=== PATIENT | male | born 1950 | race Asian ===

== ENCOUNTER → 2019-09-02 | Day surgery (SDC) | payer BC, OTHER ==
[2019-08-29 09:52] LABS: BASOPHILS % 0.4 % (0.0-1.0); EOSINOPHILS # (AUTO) 0.2 (0.0-0.4); EOSINOPHILS % 3.3 % (0.0-6.0); HEMATOCRIT 45.1 % (38.2-49.6); HEMOGLOBIN 14.8 g/dL (14.0-18.0); LYMPHOCYTES # (AUTO) 1.8 (1.0-3.2); MEAN CORPUSCULAR HEMOGLOBIN 29.5 pg (28-32); MEAN CORPUSCULAR HGB CONC 32.8 g/dL (31-35); MEAN CORPUSCULAR VOLUME 89.8 fL (81-99); MONOCYTES # (AUTO) 0.4 (0.2-0.8); MONOCYTES % 8.5 % (4.4-11.3); NEUTROPHILS # (AUTO) 2.8 (2.1-6.9); NEUTROPHILS % 53.6 % (38.7-80.0); PLATELET COUNT 153 x10e3/uL (140-360); RED BLOOD COUNT 5.02 x10e6/uL (4.3-5.7); RED CELL DISTRIBUTION WIDTH 12.6 % (11.7-14.4)
[~2019-09-02] MED LIST: AMLODIPINE BESYL5 MG PO; BACLOFEN10 MG PO; BARACLUDE0.5 MG PO; CRESTOR10 MG PO; FENTANYL CITRATE/PF 100MCG/2 ML INJ ONE; GABAPENTIN100 MG PO; LOSARTAN POTASS50 MG PO; MIDAZOLAM HCL 2 MG/2 ML VIAL ONE; OR PHACO EYE KIT ONE; OXCARBAZEPINE600 MG PO; PREOP PHACO EYE KIT ONE
--- OUTSIDE RECORDS SUMMARY | 2019-09-02 13:39 | XMS REPORT | Clinical Summary ---
Author Author [facility] Address Unknown Phone Unavailable Care Team Providers Care Maintenance Engineer Name Role Phone Gabriella Joshua MD PCP Allergies No Known Allergies Medications End Date Status Medication Sig Dispensed Refills Start Date Active amitriptyline (ELAVIL) 25 Take 25 mg by 0 MG tablet mouth nightly. Active OXcarbazepine (TRILEPTAL) Take 600 mg 0 600 MG tablet by mouth 2 (two) times daily. Active amLODIPine (NORVASC) 5 MG Take 5 mg by 0 tablet mouth nightly. Active rosuvastatin (CRESTOR) 10 Take 10 mg by 0 MG tablet mouth nightly. Active Problems Problem Noted Date Trigeminal neuralgia 03/21/2016 Social History Date Tobacco Use Types Packs/Day Years Used Never Smoker Smokeless Tobacco: Never Used Alcohol Use Drinks/Week oz/Week Comments Yes 1 Cans of 0.6 occasionally beer Sex Assigned at Date Recorded Not on file Industry Job Start Date Occupation Not on file Not on file Not on file Travel End Travel History Travel Start No recent travel history available. Last Filed Vital Signs Not on file Plan of Treatment Not on file Results Not on fileafter 09/01/2018 Insurance Payer Benefit Subscriber ID Type Phone Address Plan / Group MEDICARE MEDICARE xxxxxxxxxx Medicare PART A BLUE CROSS/BLUE SHIELD BCBS PPO xxxxxxxxxxxx PPO [address] [place] [address] CHOICE [phone] Advance Directives For more information, please contact: [id number] [place] [address] Date Inactivated Comments Code Status Date Activated 03/21/2016 2:33 PM Full Code 03/21/2016 5:57 AM This code status was determined by: Patient
[2019-09-02 14:25] VITALS: BP 129/78
== END | disposition home or self-care (01) ==
LOC: OR 13:36
PROVIDERS: ATTEND Ophthalmology
DX: H25.11 Age-related nuclear cataract, right eye (principal); I10 Essential (primary) hypertension; B19.10 Unspecified viral hepatitis B without hepatic coma; I44.0 Atrioventricular block, first degree; E78.6 Lipoprotein deficiency; Z01.810 Encounter for preprocedural cardiovascular examination; Z01.812 Encounter for preprocedural laboratory examination; Z11.59 Encounter for screening for other viral diseases
CPT/HCPCS: 36415; 66984; 85025; 87635; 93005; J2250; J3010; V2632

== ENCOUNTER → 2019-09-16 | Day surgery (SDC) | payer BC, OTHER ==
[2019-09-12 15:59] LABS: INR 0.96; PROTHROMBIN TIME 13.4 seconds (11.9-14.5)
[2019-09-12 16:09] LABS: ALBUMIN 4.4 g/dL (3.5-5.0); ALBUMIN/GLOBULIN RATIO 1.3 (0.8-2.0); CALCIUM 9.3 mg/dL (8.4-10.2); CREATININE, SERUM 1.79 mg/dL (0.72-1.25)
[2019-09-16 12:40] VITALS: BP 136/96
== END | disposition home or self-care (01) ==
LOC: OR 09:08
PROVIDERS: ATTEND Ophthalmology
DX: H25.12 Age-related nuclear cataract, left eye (principal); I10 Essential (primary) hypertension; E78.5 Hyperlipidemia, unspecified; E03.9 Hypothyroidism, unspecified; B19.20 Unspecified viral hepatitis C without hepatic coma; N20.0 Calculus of kidney; R00.1 Bradycardia, unspecified; I44.0 Atrioventricular block, first degree; Z01.812 Encounter for preprocedural laboratory examination; Z11.59 Encounter for screening for other viral diseases; Z87.891 Personal history of nicotine dependence
CPT/HCPCS: 36415; 66984; 80053; 85610; 85730; 87635; J2250; J3010